=== PATIENT | female | born 1985 | race African-American/Black ===

== ENCOUNTER 2016-05-21 00:36 | Emergency (ER) | payer OTHER ==
[~2016-05-21] VITALS: Ht 170.2 cm; Wt 107.4 kg
[~2016-05-21 00:36] MED LIST: AMOXICILLIN500 MG PO; BACTRIM,SEPT1 TABLET; BACTRIM,SEPT1 TABLET PO; BENTYL20 MG PO; CEPHALEXIN500 MG; ENDOCET 5-3251 EACH; IMITREX50 MG PO; NOHOMEMEDS; NORCO 5/3251 TABLET PO; OMEPRAZOLE40 M1 PO; PROMETHAZINE HC25 M1 PO; ROBITUSSIN AC,T10 ML PO; ZOFRAN ODT4 MG PO; ZOFRAN ODT8 MG PO
[2016-05-21] MEDS ORDERED: VALIUM5 MG PO (01:30)
[2016-05-21] MEDS ORDERED: MEDROL DOSEPAK4 MG PO (01:30)
[2016-05-21] MEDS ORDERED: PERCOCET 5/31 TABLET PO (01:30)
[2016-05-21 01:39] VITALS: BP 115/71
== END 2016-05-21 01:40 | disposition home or self-care (01) ==
LOC: RME 00:36 → EME 00:36 → RME 01:40
DX: M54.42 Lumbago with sciatica, left side (principal); F17.200 Nicotine dependence, unspecified, uncomplicated; Z88.0 Allergy status to penicillin; Z88.8 Allergy status to other drugs, medicaments and biological substances
CPT/HCPCS: 99281; 99284; J7512

== ENCOUNTER 2016-08-02 10:33 | Emergency (ER) | payer OTHER ==
[~2016-08-02] VITALS: Ht 170.2 cm; Wt 110.8 kg
[~2016-08-02 10:33] MED LIST changes: +MEDROL DOSEPAK4 MG PO; +PERCOCET 5/31 TABLET PO; +VALIUM5 MG PO
[2016-08-02 12:44] LABS: ADD MIUA? YES; BILIRUBIN NEGATIVE; BLOOD SMALL; COLOR YELLOW ((YELLOW)); GLUCOSE (STRIP) NEGATIVE; KETONES NEGATIVE; LEUKOCYTES NEGATIVE; NITRITE NEGATIVE; PROTEIN (STRIP) 100; SPECIFIC GRAVITY 1.023 (1.000-1.030); UROBILINOGEN 0.2 MG/DL (0.2-1.0)
[2016-08-02 12:56] LABS: BACTERIA NONE SEEN /HPF; EPITHELIAL CELLS RARE /HPF; MUCUS TRACE /LPF; UCUL ADDED? NO; WHITE BLOOD CELLS 0-5 /HPF (0-5)
[2016-08-02 13:10] LABS: HEMATOCRIT 40.5 % (36.0-46.0); MCH 27.3 PG (29.0-34.0); MCHC 31.6 G/DL (30.0-36.0); MCV 86.4 FL (83-99); MEAN PLAT.VOLUME 10.1 uM^3 (9.5-12.4); PLATELET COUNT 293 K/uL (156-360); RBC DIS.WIDTH-CV 13.4 % (11.8-14.6); RBC DIS.WIDTH-SD 41.8 % (39-53); RED BLOOD COUNT 4.69 M/uL (3.80-5.20)
[2016-08-02 13:24] LABS: CHLORIDE 110 mEq/L (99-109); POTASSIUM 3.9 mEq/L (3.7-5.4); SODIUM 139 mEq/L (136-147)
[2016-08-02 13:25] LABS: GLUCOSE 82 mg/dL (70-99)
[2016-08-02 13:27] LABS: ANION GAP 9 MEQ/L (2-14)
[2016-08-02 13:29] LABS: GFR ESTIMATE (CALCULATED) > 59 mL/min/
[2016-08-02 13:30] LABS: UREA NITROGEN (BUN) 17 mg/dL (9-23)
[2016-08-02 13:37] LABS: QUANTITATIVE HCG < 4.0 MIU/ML
[2016-08-02] MEDS ORDERED: SKELAXIN800 MG PO (14:08)
[2016-08-02] MEDS ORDERED: NAPROXEN500 MG PO (14:08)
[2016-08-02 15:14] VITALS: BP 101/68
== END 2016-08-02 15:14 | disposition home or self-care (01) ==
LOC: EME 10:33
PROVIDERS: Physician Assistant
DX: M62.830 Muscle spasm of back (principal); M54.32 Sciatica, left side; F17.200 Nicotine dependence, unspecified, uncomplicated
CPT/HCPCS: 72100; 80048; 81003; 84702; 85027; 99281; 99283

== ENCOUNTER 2016-10-24 17:39 | Emergency (ER) | payer OTHER ==
[~2016-10-24] VITALS: Ht 170.2 cm; Wt 99.0 kg
[~2016-10-24 17:39] MED LIST changes: +NAPROXEN500 MG PO; +SKELAXIN800 MG PO
[2016-10-24 18:48] LABS: CHLORIDE 110 mEq/L (99-109); POTASSIUM 3.3 mEq/L (3.7-5.4); SODIUM 140 mEq/L (136-147)
[2016-10-24 18:50] LABS: GLUCOSE 90 mg/dL (70-99)
[2016-10-24 18:52] LABS: ANION GAP 13 MEQ/L (2-14); TOTAL BILIRUBIN 0.7 mg/dL (0.0-1.0)
[2016-10-24 18:54] LABS: ALKALINE PHOSPHATASE 51 IU/L (3-129); GFR ESTIMATE (CALCULATED) > 59 mL/min/
[2016-10-24 18:55] LABS: UREA NITROGEN (BUN) 14 mg/dL (9-23)
[2016-10-24 18:57] LABS: LIPASE 25 U/L (1.0-51.0)
[2016-10-24 18:58] LABS: CREATINE KINASE 202 IU/L (1-294); TOTAL CK 202 IU/L (1-294)
[2016-10-24 19:01] LABS: EOSINOPHIL (%) 0.6 % (0-5); EOSINOPHIL COUNT 0.1 K/uL (0-0.3); HEMATOCRIT 39.3 % (36.0-46.0); IMMATURE GRANULOCYTE (%) 0.3 % (0.0-0.7); INSTRUMENT ABS NEUTROPHIL CT 6.8 K/uL; LYMPHOCYTE COUNT 1.7 K/uL (1.0-2.8); MCH 27.4 PG (29.0-34.0); MCHC 32.6 G/DL (30.0-36.0); MCV 84.2 FL (83-99); MEAN PLAT.VOLUME 10.3 uM^3 (9.5-12.4); MONOCYTE (%) 5.4 % (3-12); MONOCYTE COUNT 0.5 K/uL (0-0.8); NEUTROPHIL (%) 74.6 % (45-76); NEUTROPHIL COUNT 6.8 K/uL (1.8-6.4); PLATELET COUNT 251 K/uL (156-360); RBC DIS.WIDTH-CV 12.8 % (11.8-14.6); RBC DIS.WIDTH-SD 39.5 % (39-53); RED BLOOD COUNT 4.67 M/uL (3.80-5.20); WHITE BLOOD COUNT 9.1 K/uL (4.1-10.2)
[2016-10-24 19:04] LABS: QUANTITATIVE HCG < 4.0 MIU/ML
[2016-10-24 20:04] LABS: ADD MIUA? YES; BILIRUBIN NEGATIVE; BLOOD SMALL; COLOR YELLOW ((YELLOW)); GLUCOSE (STRIP) NEGATIVE; KETONES 20; LEUKOCYTES NEGATIVE; NITRITE NEGATIVE; PROTEIN (STRIP) 100; SPECIFIC GRAVITY 1.021 (1.000-1.030); UROBILINOGEN 0.2 MG/DL (0.2-1.0)
[2016-10-24 20:10] VITALS: BP 136/77
[2016-10-24 20:15] LABS: BACTERIA NONE SEEN /HPF; EPITHELIAL CELLS 1+ /HPF; MUCUS 1+ /LPF; UCUL ADDED? NO; WHITE BLOOD CELLS 0-5 /HPF (0-5)
== END 2016-10-24 20:10 | disposition left against medical advice (07) ==
LOC: EME 17:39
PROVIDERS: Emergency Medicine
DX: E86.0 Dehydration (principal); R51 Headache; R11.2 Nausea with vomiting, unspecified; R68.83 Chills (without fever); E87.6 Hypokalemia; Z90.49 Acquired absence of other specified parts of digestive tract; F17.200 Nicotine dependence, unspecified, uncomplicated
CPT/HCPCS: 80053; 81003; 82550; 82553; 83690; 84702; 85025; 93005; 99281; 99284; J0780; J1200; J2405; J7030

== ENCOUNTER 2016-10-27 17:39 | Emergency (ER) | payer OTHER ==
[~2016-10-27] VITALS: Ht 170.2 cm; Wt 109.8 kg
[2016-10-27 20:29] LABS: HEMATOCRIT 37.7 % (36.0-46.0); MCH 27.6 PG (29.0-34.0); MCHC 32.6 G/DL (30.0-36.0); MCV 84.5 FL (83-99); MEAN PLAT.VOLUME 10.2 uM^3 (9.5-12.4); PLATELET COUNT 252 K/uL (156-360); RBC DIS.WIDTH-CV 12.6 % (11.8-14.6); RBC DIS.WIDTH-SD 38.3 % (39-53); RED BLOOD COUNT 4.46 M/uL (3.80-5.20); WHITE BLOOD COUNT 7.4 K/uL (4.1-10.2)
[2016-10-27 20:44] LABS: CHLORIDE 112 mEq/L (99-109); POTASSIUM 3.2 mEq/L (3.7-5.4); SODIUM 143 mEq/L (136-147)
[2016-10-27 20:46] LABS: GLUCOSE 102 mg/dL (70-99)
[2016-10-27 20:47] LABS: ANION GAP 12 MEQ/L (2-14)
[2016-10-27 20:49] LABS: ALKALINE PHOSPHATASE 55 IU/L (3-129)
[2016-10-27 20:50] LABS: GFR ESTIMATE (CALCULATED) > 59 mL/min/
[2016-10-27 20:51] LABS: UREA NITROGEN (BUN) 12 mg/dL (9-23)
[2016-10-27 20:53] LABS: LIPASE 13 U/L (1.0-51.0)
[2016-10-27 20:56] LABS: TOTAL BILIRUBIN 0.9 mg/dL (0.0-1.0)
[2016-10-27 20:59] LABS: QUANTITATIVE HCG < 4.0 MIU/ML
[2016-10-27 23:15] LABS: ADD MIUA? YES; BILIRUBIN NEGATIVE; BLOOD LARGE; COLOR YELLOW ((YELLOW)); GLUCOSE (STRIP) NEGATIVE; KETONES 80; LEUKOCYTES NEGATIVE; NITRITE NEGATIVE; PROTEIN (STRIP) 100; UROBILINOGEN 0.2 MG/DL (0.2-1.0)
[2016-10-27 23:25] LABS: BACTERIA RARE /HPF; EPITHELIAL CELLS RARE /HPF; MUCUS TRACE /LPF; UCUL ADDED? NO; WHITE BLOOD CELLS 0-5 /HPF (0-5)
[2016-10-27] MEDS ORDERED: PHENERGAN25 MG PR (23:27)
[2016-10-27] MEDS ORDERED: PROTONIX40 MG PO (23:27)
[2016-10-27 23:54] VITALS: BP 123/76
== END 2016-10-27 23:55 | disposition home or self-care (01) ==
LOC: EME 17:39
DX: K27.9 Peptic ulcer, site unspecified, unspecified as acute or chronic, without hemorrhage or perforation (principal); R10.13 Epigastric pain; Z90.49 Acquired absence of other specified parts of digestive tract; F17.200 Nicotine dependence, unspecified, uncomplicated
CPT/HCPCS: 74177; 80053; 81003; 83690; 84702; 85027; 99281; 99285; C9113; J2270; J2765; J3480; J7030

== ENCOUNTER 2017-05-10 13:05 | Emergency (ER) | payer OTHER ==
[~2017-05-10 13:05] MED LIST changes: +PHENERGAN25 MG PR; +PROTONIX40 MG PO
[2017-05-11] MEDS ORDERED: REGLAN10 MG PO (05:02)
== END 2017-05-10 13:45 | disposition left against medical advice (07) ==
LOC: EME 13:05
DX: Z53.21 Procedure and treatment not carried out due to patient leaving prior to being seen by health care provider (principal)
CPT/HCPCS: 99281

== ENCOUNTER 2017-05-10 23:26 | Emergency (ER) | payer OTHER ==
[~2017-05-10] VITALS: Ht 167.6 cm; Wt 109.1 kg
[2017-05-10 23:54] LABS: HEMATOCRIT 39.3 % (36.0-46.0); HEMOGLOBIN 13.3 G/DL (11.9-15.5); MCH 28.1 PG (29.0-34.0); MCHC 33.8 G/DL (30.0-36.0); MCV 83.1 FL (83-99); PLATELET COUNT 329 K/uL (156-360); RBC DIS.WIDTH-CV 12.9 % (11.8-14.6); RED BLOOD COUNT 4.73 M/uL (3.80-5.20); WHITE BLOOD COUNT 10.2 K/uL (4.1-10.2)
[2017-05-11 00:05] LABS: ALBUMIN 4.1 g/dL (3.2-4.8); CHLORIDE 107 mEq/L (99-109); POTASSIUM 3.5 mEq/L (3.7-5.4); SODIUM 137 mEq/L (136-147)
[2017-05-11 00:08] LABS: GLUCOSE 131 mg/dL (70-99); TOTAL PROTEIN 8.3 g/dL (6.4-8.3)
[2017-05-11 00:10] LABS: TOTAL BILIRUBIN 0.8 mg/dL (0.0-1.0)
[2017-05-11 00:11] LABS: ALKALINE PHOSPHATASE 57 IU/L (3-129); CREATININE 0.8 mg/dL (0.6-1.3); GFR ESTIMATE (CALCULATED) > 59 mL/min/
[2017-05-11 00:12] LABS: UREA NITROGEN (BUN) 12 mg/dL (9-23)
[2017-05-11 00:13] LABS: AST (GOT) 17 IU/L (2-34)
[2017-05-11 00:14] LABS: ALT (GPT) 19 IU/L (3-49)
[2017-05-11 00:21] LABS: QUANTITATIVE HCG < 4.0 MIU/ML
[2017-05-11 01:55] LABS: LIPASE 14 U/L (1.0-51.0)
[2017-05-11 04:42] LABS: APPEARANCE CLEAR ((CLEAR)); BILIRUBIN NEGATIVE; BLOOD MODERATE; COLOR YELLOW ((YELLOW)); GLUCOSE (STRIP) NEGATIVE; KETONES 20; LEUKOCYTES NEGATIVE; NITRITE NEGATIVE; PROTEIN (STRIP) >=500; SPECIFIC GRAVITY 1.013 (1.000-1.030); UROBILINOGEN 0.2 MG/DL (0.2-1.0)
[2017-05-11 04:48] LABS: BACTERIA RARE /HPF; EPITHELIAL CELLS 1+ /HPF; MUCUS TRACE /LPF; UCUL ADDED? NO; WHITE BLOOD CELLS 0-5 /HPF (0-5)
[2017-05-11] MEDS ORDERED: REGLAN10 MG PO (05:02)
[2017-05-11 05:43] VITALS: BP 131/61
== END 2017-05-11 05:44 | disposition home or self-care (01) ==
LOC: EME 23:26
DX: R11.2 Nausea with vomiting, unspecified (principal); F17.200 Nicotine dependence, unspecified, uncomplicated; Z90.49 Acquired absence of other specified parts of digestive tract; Z88.8 Allergy status to other drugs, medicaments and biological substances; Z88.0 Allergy status to penicillin
CPT/HCPCS: 80053; 81003; 83690; 84702; 85027; J2765; J7030

== ENCOUNTER 2017-05-21 05:26 | Emergency (ER) | payer OTHER ==
[~2017-05-21] VITALS: Ht 170.2 cm; Wt 108.1 kg
[~2017-05-21 05:26] MED LIST changes: +REGLAN10 MG PO
[2017-05-21 07:33] LABS: HEMATOCRIT 37.8 % (36.0-46.0); HEMOGLOBIN 12.5 G/DL (11.9-15.5); MCH 27.8 PG (29.0-34.0); MCHC 33.1 G/DL (30.0-36.0); MCV 84.2 FL (83-99); PLATELET COUNT 244 K/uL (156-360); RBC DIS.WIDTH-CV 12.9 % (11.8-14.6); RBC DIS.WIDTH-SD 39.4 % (39-53); RED BLOOD COUNT 4.49 M/uL (3.80-5.20)
[2017-05-21 07:52] LABS: APPEARANCE CLEAR ((CLEAR)); BILIRUBIN NEGATIVE; BLOOD SMALL; COLOR YELLOW ((YELLOW)); GLUCOSE (STRIP) NEGATIVE; KETONES 20; LEUKOCYTES NEGATIVE; NITRITE NEGATIVE; PROTEIN (STRIP) 100; SPECIFIC GRAVITY 1.024 (1.000-1.030); UROBILINOGEN 0.2 MG/DL (0.2-1.0)
[2017-05-21 08:16] LABS: BACTERIA NONE SEEN /HPF; EPITHELIAL CELLS 1+ /HPF; MUCUS 2+ /LPF; UCUL ADDED? YES
[2017-05-21 08:52] LABS: ALBUMIN 3.9 g/dL (3.2-4.8); CHLORIDE 110 mEq/L (99-109); POTASSIUM 3.8 mEq/L (3.7-5.4); SODIUM 140 mEq/L (136-147)
[2017-05-21 08:54] LABS: GLUCOSE 120 mg/dL (70-99); TOTAL PROTEIN 7.4 g/dL (6.4-8.3)
[2017-05-21 08:56] LABS: TOTAL BILIRUBIN 0.3 mg/dL (0.0-1.0)
[2017-05-21 08:58] LABS: ALKALINE PHOSPHATASE 52 IU/L (3-129); CREATININE 0.7 mg/dL (0.6-1.3); GFR ESTIMATE (CALCULATED) > 59 mL/min/
[2017-05-21 08:59] LABS: UREA NITROGEN (BUN) 10 mg/dL (9-23)
[2017-05-21 09:00] LABS: AST (GOT) 19 IU/L (2-34)
[2017-05-21 09:01] LABS: ALT (GPT) 26 IU/L (3-49); LIPASE 12 U/L (1.0-51.0)
[2017-05-21 09:08] LABS: QUANTITATIVE HCG < 4.0 MIU/ML
[2017-05-21] MEDS ORDERED: REGLAN10 MG PO (10:58)
[2017-05-21] MEDS ORDERED: BENTYL20 MG PO (10:58)
[2017-05-21 11:18] VITALS: BP 132/87
== END 2017-05-21 11:18 | disposition home or self-care (01) ==
LOC: EME 05:26
PROVIDERS: Emergency Medicine
DX: R10.84 Generalized abdominal pain (principal); R11.2 Nausea with vomiting, unspecified; Z88.8 Allergy status to other drugs, medicaments and biological substances; Z88.0 Allergy status to penicillin; F17.200 Nicotine dependence, unspecified, uncomplicated
CPT/HCPCS: 74177; 80053; 81003; 83690; 84702; 85027; 87086; 99281; 99284; J2270; J2765; J3010; J7030

== ENCOUNTER 2017-07-05 20:55 | Emergency (ER) | payer OTHER ==
[~2017-07-05] VITALS: Ht 170.2 cm; Wt 108.3 kg
[2017-07-05 21:01] VITALS: BP 127/80
[2017-07-05 21:42] LABS: HEMATOCRIT 39.1 % (36.0-46.0); HEMOGLOBIN 13.2 G/DL (11.9-15.5); MCH 28.3 PG (29.0-34.0); MCHC 33.8 G/DL (30.0-36.0); MCV 83.9 FL (83-99); PLATELET COUNT 276 K/uL (156-360); RBC DIS.WIDTH-CV 13.2 % (11.8-14.6); RED BLOOD COUNT 4.66 M/uL (3.80-5.20); WHITE BLOOD COUNT 8.1 K/uL (4.1-10.2)
[2017-07-05 21:55] LABS: CHLORIDE 108 mEq/L (99-109); POTASSIUM 3.4 mEq/L (3.7-5.4); SODIUM 140 mEq/L (136-147)
[2017-07-05 21:56] LABS: GLUCOSE 106 mg/dL (70-99)
[2017-07-05 22:00] LABS: CREATININE 0.8 mg/dL (0.6-1.3); GFR ESTIMATE (CALCULATED) > 59 mL/min/
[2017-07-05 22:01] LABS: UREA NITROGEN (BUN) 11 mg/dL (9-23)
[2017-07-05 22:04] LABS: TROP-I INTERPRETATION NEGATIVE; TROPONIN-I < 0.01 ng/mL (0.0-0.30)
[2017-07-06] MEDS ORDERED: PROMETHAZINE HC25 M1 PO (09:43)
[2017-07-06] MEDS ORDERED: CARAFATE1 GM PO (09:43)
== END 2017-07-05 22:50 | disposition left against medical advice (07) ==
LOC: EME 20:55
DX: R07.9 Chest pain, unspecified (principal); Z53.21 Procedure and treatment not carried out due to patient leaving prior to being seen by health care provider
CPT/HCPCS: 71046; 80048; 84484; 85027; 93005

== ENCOUNTER 2017-07-06 04:43 | Emergency (ER) | payer OTHER ==
[~2017-07-06] VITALS: Ht 170.2 cm; Wt 108.3 kg
[2017-07-06 06:50] LABS: APPEARANCE SL.HAZY ((CLEAR)); BILIRUBIN NEGATIVE; BLOOD SMALL; COLOR YELLOW ((YELLOW)); GLUCOSE (STRIP) NEGATIVE; KETONES 80; LEUKOCYTES NEGATIVE; NITRITE NEGATIVE; PROTEIN (STRIP) >=500; SPECIFIC GRAVITY 1.039 (1.000-1.030); UROBILINOGEN 0.2 MG/DL (0.2-1.0)
[2017-07-06 06:57] LABS: BACTERIA RARE /HPF; EPITHELIAL CELLS RARE /HPF; HYALINE CASTS 0-5 /LPF; MUCUS 1+ /LPF; UCUL ADDED? NO; WHITE BLOOD CELLS 0-5 /HPF (0-5)
[2017-07-06 07:14] LABS: BASOPHIL (%) 0.1 % (0-1); EOSINOPHIL (%) 0 % (0-5); HEMATOCRIT 41.9 % (36.0-46.0); HEMOGLOBIN 13.7 G/DL (11.9-15.5); IMMATURE GRANULOCYTE (%) 0.3 % (0.0-0.7); LYMPHOCYTE (%) 9.5 % (15-42); LYMPHOCYTE COUNT 0.9 K/uL (1.0-2.8); MCHC 32.7 G/DL (30.0-36.0); MCV 85.5 FL (83-99); MONOCYTE (%) 2.4 % (3-12); MONOCYTE COUNT 0.2 K/uL (0-0.8); NEUTROPHIL (%) 87.7 % (45-76); NEUTROPHIL COUNT 8.4 K/uL (1.8-6.4); PLATELET COUNT 277 K/uL (156-360); RBC DIS.WIDTH-CV 13.2 % (11.8-14.6); WHITE BLOOD COUNT 9.6 K/uL (4.1-10.2)
[2017-07-06 07:50] LABS: ALBUMIN 4.6 G/DL (3.2-4.8); ALKALINE PHOSPHATASE 57 IU/L (3-129); ALT (GPT) 18 IU/L (3-49); AST (GOT) 18 IU/L (2-34); CHLORIDE 108 MEQ/L (99-109); CREATININE 0.6 MG/DL (0.6-1.3); GFR ESTIMATE (CALCULATED) > 59 mL/min/; GLUCOSE 117 mg/dL (70-99); LIPASE 21 U/L (1.0-51.0); POTASSIUM 3.8 MEQ/L (3.7-5.4); SODIUM 138 MEQ/L (136-147); TOTAL PROTEIN 8.1 G/DL (6.4-8.3); UREA NITROGEN (BUN) 13 mg/dL (9-23)
[2017-07-06 08:53] LABS: QUANTITATIVE HCG < 4.0 MIU/ML
[2017-07-06] MEDS ORDERED: PROMETHAZINE HC25 M1 PO (09:43)
[2017-07-06] MEDS ORDERED: CARAFATE1 GM PO (09:43)
[2017-07-06 09:48] VITALS: BP 128/63
== END 2017-07-06 09:53 | disposition home or self-care (01) ==
LOC: EME 04:43
PROVIDERS: Emergency Medicine
DX: R10.13 Epigastric pain (principal); R11.2 Nausea with vomiting, unspecified; F17.200 Nicotine dependence, unspecified, uncomplicated; Z90.49 Acquired absence of other specified parts of digestive tract; Z88.0 Allergy status to penicillin; Z88.6 Allergy status to analgesic agent
CPT/HCPCS: 80053; 81003; 83690; 84702; 85025; 99281; 99285; J2765; J7030

== ENCOUNTER 2017-07-10 07:47 | Emergency (ER) | payer OTHER ==
[~2017-07-10] VITALS: Ht 170.2 cm; Wt 106.7 kg
[~2017-07-10 07:47] MED LIST changes: +CARAFATE1 GM PO
[2017-07-10 08:29] LABS: BASOPHIL (%) 0.5 % (0-1); BASOPHIL COUNT 0.1 K/uL (0-0.1); EOSINOPHIL (%) 0.4 % (0-5); HEMATOCRIT 39.9 % (36.0-46.0); HEMOGLOBIN 13.5 G/DL (11.9-15.5); IMMATURE GRANULOCYTE (%) 0.3 % (0.0-0.7); LYMPHOCYTE (%) 25.9 % (15-42); LYMPHOCYTE COUNT 2.4 K/uL (1.0-2.8); MCH 28.3 PG (29.0-34.0); MCHC 33.8 G/DL (30.0-36.0); MCV 83.6 FL (83-99); MONOCYTE (%) 8.9 % (3-12); MONOCYTE COUNT 0.8 K/uL (0-0.8); NEUTROPHIL COUNT 5.9 K/uL (1.8-6.4); PLATELET COUNT 297 K/uL (156-360); RBC DIS.WIDTH-CV 12.7 % (11.8-14.6); RBC DIS.WIDTH-SD 38.6 % (39-53); RED BLOOD COUNT 4.77 M/uL (3.80-5.20); WHITE BLOOD COUNT 9.3 K/uL (4.1-10.2)
[2017-07-10 08:40] LABS: APPEARANCE SL.HAZY ((CLEAR)); BILIRUBIN NEGATIVE; BLOOD SMALL; COLOR AMBER ((YELLOW)); GLUCOSE (STRIP) NEGATIVE; KETONES NEGATIVE; LEUKOCYTES NEGATIVE; NITRITE NEGATIVE; PROTEIN (STRIP) >=500; SPECIFIC GRAVITY 1.029 (1.000-1.030)
[2017-07-10 09:05] LABS: BACTERIA RARE /HPF; EPITHELIAL CELLS 1+ /HPF; MUCUS 4+ /LPF; UCUL ADDED? NO; WHITE BLOOD CELLS 0-5 /HPF (0-5)
[2017-07-10 09:19] LABS: CHLORIDE 103 mEq/L (99-109); POTASSIUM 3.3 mEq/L (3.7-5.4); SODIUM 137 mEq/L (136-147)
[2017-07-10 09:21] LABS: GLUCOSE 102 mg/dL (70-99); TOTAL PROTEIN 7.4 g/dL (6.4-8.3)
[2017-07-10 09:24] LABS: ALKALINE PHOSPHATASE 58 IU/L (3-129)
[2017-07-10 09:25] LABS: CREATININE 0.8 mg/dL (0.6-1.3); GFR ESTIMATE (CALCULATED) > 59 mL/min/
[2017-07-10 09:26] LABS: AST (GOT) 41 IU/L (2-34); UREA NITROGEN (BUN) 11 mg/dL (9-23)
[2017-07-10 09:27] LABS: ALT (GPT) 65 IU/L (3-49)
[2017-07-10 09:28] LABS: LIPASE 15 U/L (1.0-51.0)
[2017-07-10 10:24] VITALS: BP 147/92
== END 2017-07-10 10:26 | disposition home or self-care (01) ==
LOC: EME 07:47
PROVIDERS: Emergency Medicine
DX: R10.13 Epigastric pain (principal); F17.200 Nicotine dependence, unspecified, uncomplicated; Z90.49 Acquired absence of other specified parts of digestive tract; Z88.0 Allergy status to penicillin
CPT/HCPCS: 74177; 80053; 81003; 81025; 83605; 83690; 85025; 99281; 99284; J7030

== ENCOUNTER 2017-09-27 15:59 | Emergency (ER) | payer OTHER ==
[~2017-09-27] VITALS: Ht 170.2 cm; Wt 103.3 kg
[2017-09-27 16:52] LABS: ALBUMIN 4.5 g/dL (3.2-4.8)
[2017-09-27 16:53] LABS: CHLORIDE 104 mEq/L (99-109); POTASSIUM 3.5 mEq/L (3.7-5.4); SODIUM 137 mEq/L (136-147)
[2017-09-27 16:55] LABS: GLUCOSE 95 mg/dL (70-99); TOTAL PROTEIN 8.3 g/dL (6.4-8.3)
[2017-09-27 16:57] LABS: TOTAL BILIRUBIN 1.5 mg/dL (0.0-1.0)
[2017-09-27 16:58] LABS: ALKALINE PHOSPHATASE 65 IU/L (3-129)
[2017-09-27 16:59] LABS: CREATININE 0.8 mg/dL (0.6-1.3); GFR ESTIMATE (CALCULATED) > 59 mL/min/
[2017-09-27 17:00] LABS: AST (GOT) 41 IU/L (2-34); UREA NITROGEN (BUN) 13 mg/dL (9-23)
[2017-09-27 17:02] LABS: ALT (GPT) 67 IU/L (3-49); LIPASE 15 U/L (1.0-51.0)
[2017-09-27 17:08] LABS: QUANTITATIVE HCG < 4.0 MIU/ML
[2017-09-27 17:23] LABS: HEMATOCRIT 42.9 % (36.0-46.0); HEMOGLOBIN 14.5 G/DL (11.9-15.5); MCH 28.4 PG (29.0-34.0); MCHC 33.8 G/DL (30.0-36.0); MCV 84.1 FL (83-99); PLATELET COUNT 316 K/uL (156-360); RBC DIS.WIDTH-CV 13.2 % (11.8-14.6); RBC DIS.WIDTH-SD 40.9 % (39-53); WHITE BLOOD COUNT 11.2 K/uL (4.1-10.2)
[2017-09-27 18:30] LABS: TROP-I INTERPRETATION NEGATIVE; TROPONIN-I < 0.01 ng/mL (0.0-0.30)
[2017-09-27] MEDS ORDERED: REGLAN10 MG PO (19:34)
[2017-09-27 19:56] VITALS: BP 168/93
== END 2017-09-27 20:24 | disposition home or self-care (01) ==
LOC: EME 15:59
DX: K29.70 Gastritis, unspecified, without bleeding (principal); Z90.49 Acquired absence of other specified parts of digestive tract; F17.200 Nicotine dependence, unspecified, uncomplicated; Z88.0 Allergy status to penicillin
CPT/HCPCS: 71046; 74019; 76856; 80053; 81003; 83690; 84484; 84702; 85027; 93005; 99281; 99285; C9113; J1200; J2765; J3010; J7030